=== PATIENT | female | born 1950 ===

== ENCOUNTER 2022-03-15 07:00 | Day surgery (SDC) | payer OTHER ==
[~2022-03-15 07:00] MED LIST: ADVIL200 M1 PO; NEURONTIN800 MG PO; TENORMIN25 MG PO; VOLTAREN ARTHRI20 GM
[2022-03-15] MEDS ORDERED: SULFAMETHOXAZO1 EACH PO (13:30)
== END 2022-03-15 15:15 | disposition home or self-care (01) ==
LOC: CIR.AMB 07:00
PROVIDERS: ATTEND Obstetrics & Gynecology
DX: A58 Granuloma inguinale (principal); N76.1 Subacute and chronic vaginitis; Z91.013 Allergy to seafood; Z88.8 Allergy status to other drugs, medicaments and biological substances; S31.41XA Laceration without foreign body of vagina and vulva, initial encounter; N81.10 Cystocele, unspecified; N84.2 Polyp of vagina; Z20.822 Contact with and (suspected) exposure to COVID-19